=== PATIENT | male | born 1985 | race Caucasian/White ===

== ENCOUNTER 2023-11-08 11:38 | Emergency (ER) | payer SELFPAY ==
[2023-11-08] VITALS (11 sets, daily range): BP systolic 149–165; BP diastolic 92–98; PULSE 67–91; RESP 12–23; TEMP 36.6; O2SAT 98–100
--- NOTE | ~2023-11-08 | CT_ITS ---
EXAMINATION: CT chest abdomen pelvis w con DATE: 11/08/2023 13:36 INDICATION: Chest pain, abdominal pain for 3 days. Frequent urination. TECHNIQUE: Computed tomography (CT) of the chest, abdomen, and pelvis was performed with 100 CC Omnip aque 350 intravenous contrast. Automated exposure control and iterative reconstruction technique were employed. Exam dose: 675.80 mGy-cm total exam DLP. COMPARISON: November 08, 2023 portable AP chest FINDINGS: CHEST CT: Normal heart size. No pericardial or pleural effusion. No thoracic aortic aneurysm or dissection. No hilar or mediastinal mass lesion or lymphadenopathy. Minimal discoid atelectasis in the dependent lower lobes. The lungs are clear of infiltrate or consol idation. No suspicious pulmonary mass lesion. ABDOMEN/PELVIS CT: No hepatic, splenic, pancreatic, adrenal or renal space occupying mass lesion is evident. The gallbla dder appears normal. No bile duct or pancreatic duct dilatation. No urinary tract calculus or hydroureteronephrosis. The urinary bladder and prostate gland and semina l vesicles are unremarkable. Normal caliber of the abdominal aorta. No intraperitoneal or retroperitoneal or pelvic mass lesion or adenopathy or ascites. Normal appendix. No bowel obstruction, bowel wall thickening, pneumatosis or intraperitoneal free air . No suspicious osteolytic or osteoblastic lesions of the included skeleton. IMPRESSION: No similar abnormality Reviewed, dictated and finalized at [facility]. Reviewed, dictated and finalized at [facility]. IMPRESSION: No similar abnormality
--- NOTE | ~2023-11-08 | XR_ITS ---
XR chest 1V portable DATE: 11/08/2023 12:25 INDICATION: Chest and back pain. Frequent urination. TECHNIQUE: Portable AP chest on November 08, 2023 at 1223 hours COMPARISON: None FINDINGS: No pulmonary infiltrate or consolidation, pleural effusion or pulmonary vascular congestion or pneumothorax. Heart size is within normal range. No hilar or mediastinal enlargement. Included skeletal structures are unremarkable. IMPRESSION: No active cardiopulmonary disease Reviewed, dictated and finalized at [facility].
--- NOTE | 2023-11-08 11:45 | ECG_ITS ---
SEE SCANNED COPY FOR CONFIRMED REPORT MTDD
[2023-11-08 12:00] LABS: Basophils Percent Auto 0.5 % (0.2-1.2); Eosinophils Absolute Auto 0.1 K/mm3 (0-0.3); Hematocrit 44.9 % (42.0-52.0); Hemoglobin 15.8 g/dL (14.0-18.0); Immature Granulocyte Absolute 0.01 K/mm3 (0.00-0.031); Immature Granulocyte Percent A 0.2 % (0-0.5); Lymphocytes Absolute Auto 1.82 K/mm3 (0.9-3.2); Lymphocytes Percent Auto 30.9 % (18.3-44.2); Mean Corpuscular HGB Conc 35.2 g/dl (32-36); Mean Corpuscular Volume 88.2 fl (80-100); Mean Platelet Volume 8.6 fl (7.4-10.4); Monocytes Absolute Auto 0.3 K/mm3 (0.1-0.6); Monocytes Percent Auto 5.3 % (2.6-8.5); Neutrophils Absolute Auto 3.6 K/mm3 (1.3-6.7); Neutrophils Percent Auto 61.1 % (45.5-73.1); Platelet Count Result 333 k/mm3 (150-375); Red Blood Count 5.09 M/mm3 (4.6-6.20); Red Cell Distribution Width 11.9 % (11.5-14.5); White Blood Count 5.9 K/mm3 (4.5-10.0)
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
[2023-11-08 12:11] LABS: Partial Thromboplastin Time 27.6 Seconds (22.3-36.8)
[2023-11-08 12:15] LABS: Alanine Aminotransferase 52 U/L (6-50); Albumin Level 4.9 g/dL (3.5-5.1); Alkaline Phosphatase 44 U/L (38-126); Anion Gap 8 mmol/L (4-12); Aspartate Amino Transferase 37 U/L (17-59); Bilirubin,Total 0.8 mg/dL (0.2-1.3); Blood Urea Nitrogen 15 mg/dL (9-20); Calcium 9.8 mg/dL (8.4-10.2); Carbon Dioxide 28 mmol/L (22-30); Chloride 106 mmol/L (98-107); Estimated CRCL calculation 90 ml/min; Estimated Glomerular Filt Rate > 60; Glucose 112 mg/dL (65-110); Potassium 4.1 mmol/L (3.4-5.0); Sodium 142 mmol/L (137-145)
[2023-11-08 12:24] LABS: Appearance Urine Clear (Clear); Bilirubin Urine Negative (Negative); Blood Urine Negative (Negative); Color Urine Yellow (Yellow); Glucose Urine UA Negative (Negative); Ketones Urine Negative (Negative); Leukocyte Esterase Ur Negative LEU/UL (Negative); Nitrate Urine Negative (Negative); Protein Urine Negative (Negative); Specific Grav Ur 1.018 (1.001-1.035); Urobilinogen Urine 0.2 mg/dL (<2.0); pH Urine 7.5 (5.0-9.0)
[2023-11-08 12:27] LABS: Add Urine Microscopic? NO
[2023-11-08] MEDS: SODIUM CHLORIDE 0.9% IV 1,000 ML 999 ML IV CONT (12:37)
[2023-11-08 12:47] LABS: Lipase 84 U/L (23-300)
[2023-11-08 13:00] LABS: Troponin I < 0.012 ng/mL (0.000-0.034)
== END 2023-11-08 14:16 | disposition home or self-care (01) ==
PROVIDERS: Emergency Medicine; Emergency Provider Emergency Medicine
DX: R10.10 Upper abdominal pain, unspecified (principal); M54.9 Dorsalgia, unspecified; Z63.79 Other stressful life events affecting family and household; F17.200 Nicotine dependence, unspecified, uncomplicated
CPT/HCPCS: 36415; 71045; 71260; 74177; 80053; 81003; 83690; 84484; 85025; 85610; 85730; 93005; 96360; 99284; J7030; Q9967